=== PATIENT | male | born 2000 | race Caucasian/White ===

== ENCOUNTER 2023-03-05 09:47 | Emergency (ER) | payer SELFPAY ==
[2023-03-05 09:49] VITALS: BP 144/98; PULSE 98; RESP 14; TEMP 36.6; O2SAT 98
--- NOTE | 2023-03-05 10:11 | ED.VIS.DENTA ---
HPI History of Present Illness Chief Complaint: Dental Informant: patient Onset/Context/Timing Onset: Today Narrative Narrative: Patient presents with right-sided facial swelling and pain. He states he felt well last night. He does report having some filling to his teeth on the right maxillary surface, but states that was 2 years ago and has not had any recent problems. He is currently traveling away from home, but did speak to his dentist this morning. PFSH PFS Home Medications clindamycin HCl 150 mg capsule 300 mg (2 x 150 mg) PO 4X/DAY #80 CAPSULES 03/05/23 [Rx Last Taken Unknown] Allergy/AdvReac Type Severity Reaction Status Date / Time No Known Allergies Allergy Verified 03/05/23 09:49 ROS ROS ED Constitutional Constitutional ED: Denies chills or fever(s) Eyes Eyes: Denies change in vision ENT ENT ED: Reports other Details: Right-sided facial swelling and dental pain ; Denies rhinorrhea or sore throat Cardiovascular Cardiovascular: Denies chest pain Respiratory/Chest Respiratory/Chest: Denies cough or dyspnea Gastrointestinal Gastrointestinal: Denies abdominal pain Musculoskeletal Musculoskeletal: Denies extremity pain Integumentary Denies Abrasions or rash Neurologic Neurologic: Denies headache(s) Psychiatric Psychiatric: Denies anxiety or depression Allergic/Immunologic Allergic/Immunologic ED: Denies lip swelling or urticaria EXAM Physical Exam Const Vital Signs: 03/05/23 09:49 Temperature 98 F Temperature Source Temporal Pulse Rate 98 Respiratory Rate 14 Blood Pressure 144/98 H Blood Pressure Mean 113 Pulse Ox 98 Oxygen Delivery Method Room Air Positive well nourished and well developed General Appearance ED: well developed HEENT HEENT Narrative: Mild right-sided facial swelling. No erythema or overlying signs of infection. Intraoral examination reveals no focal dental pain. He does have some mild gum edema and swelling above the right maxillary premolars. There is no fluctuant abscess palpated at this time. Eyes PERRL and EOMs intact bilaterally Neck no lymphadenopathy Lymph Lymphatic: no lymphadenopathy noted Chest Wall inspection of chest normal and palpation of chest normal Resp normal respiratory effort and no retractions Cardio regular rate, regular rhythm and no murmurs GI non-tender Extremity normal to inspection Neuro oriented x3 and moves all extremities Psych mental status grossly normal MDM MDM MDM Narrative Medical decision making narrative: Patient will treat with a course of clindamycin, first dose given here. He is given his prescription printed out as he is not sure how soon he may be heading home. He is advised use ibuprofen for pain and continue ice intermittently. Discharge Plan Triage Chief Complaint: Dental ED Provider: Tatyana Parker Dx/Rx/DC Orders Clinical Impression: Dental infection Instructions: ED Dental Abscess Prescriptions: New clindamycin HCl 150 mg capsule 300 mg PO 4X/DAY Qty: 80 0RF Disposition Disposition: Home, Self Care
[2023-03-05] MEDS: Clindamycin HCl 150 MG Capsule 300 MG PO (10:28)
== END 2023-03-05 10:34 | disposition home or self-care (01) ==
LOC: ED 10:24
PROVIDERS: Emergency Provider Emergency Medicine; Visit Provider Emergency Medicine
DX: K04.7 Periapical abscess without sinus (principal)
CPT/HCPCS: 99283